=== PATIENT | male | born 1945 | race Caucasian/White ===

== ENCOUNTER 2019-11-11 09:30 | Outpatient (CLI) | payer MEDICARE, OTHER ==
[2019-11-11] MEDS ORDERED: Iopamidol-370 76% 500 ML 1 ML ONE (11:43)
--- NOTE | 2019-11-11 13:52 | CT ---
CT OF CHEST AND ABDOMEN AND PELVIS: DATE: 11/11/2019. COMPARISON: None. HISTORY: Unintentional weight loss. TECHNIQUE: Axial CT imaging at 5 mm intervals from the thoracic inlet through the pubic symphysis with IV and or al contrast. Coronal and sagittal reformatted imaging obtained. FINDINGS: No axillary, hilar, or mediastinal lymphadenopathy. There is left-sided coronary arterial calcificat ion. No pneumothorax, pleural fluid, or pericardial effusion. There is a tiny 3 mm pleural-based nodule within the anterior inferior right lower lobe region on axi al image 32. No dominant pulmonary parenchymal mass lesion or nodule is seen on either side. There is no endobronchial lesion seen on either side. Review of the osseous structures of the chest demonstrate no worrisome lytic or blastic bone lesions. No free intraperitoneal air or fluid is evident. There is a tiny hypodensity in the right lobe of the liver on axial image 65 measuring 6 mm, too smal l to characterize. The spleen, gallbladder, pancreas, and adrenal glands appear grossly unremarkable. Multiple parapelvic cysts are noted within the left kidney. A few right-sided parapelvic cysts are n oted as well. There is an exophytic mid pole right renal cyst measuring 2.8 cm. 3-4 scattered subcentimeter nonobs tructing renal calculi are present on the left measuring up to approximately 5 mm. There are postoperative clips in the pelvis suggesting prior prostatectomy. No evidence for bowel in flammatory change or bowel obstruction is seen. There is extensive scattered atherosclerotic calcification of the abdominal aorta and its branches, m ost prominent within the infrarenal region. No lymphadenopathy is appreciated within the pelvis, the retroperitoneum, or the mesentery. Nonspecific small caliber varices are noted within the upper abdomen including the perihepatic region , the gastrohepatic ligament, and the left upper quadrant adjacent to the greater curvature of the st omach. Review of the osseous structures of the abdomen/pelvis demonstrate multilevel lower lumbar spine face t hypertrophic change. No worrisome lytic or blastic bone lesion is noted. There is multilevel disk space narrowing with anterior osteophyte formation within the lower thoracic spine/thoracolumbar shane ction. The lungs appear hyperinflated suggesting air trapping. Question a history of COPD. IMPRESSION: No acute findings are noted within the chest, abdomen, or pelvis. There are numerous incidental find ings as detailed above. POS: [id number]
== END 2019-11-11 09:31 | disposition home or self-care (01) ==
LOC: BICCT 09:30
PROVIDERS: ATTEND Internal Medicine Gastroenterology
DX: R63.4 Abnormal weight loss (principal); K76.89 Other specified diseases of liver; N28.1 Cyst of kidney, acquired; N20.0 Calculus of kidney; Z98.890 Other specified postprocedural states; I70.0 Atherosclerosis of aorta; I83.90 Asymptomatic varicose veins of unspecified lower extremity; I25.10 Atherosclerotic heart disease of native coronary artery without angina pectoris; R91.1 Solitary pulmonary nodule; M89.9 Disorder of bone, unspecified
CPT/HCPCS: 71260; 74177; Q9967

== ENCOUNTER 2021-06-24 15:25 | Outpatient (CLI) | payer MEDICARE, OTHER | END 2021-06-24 15:26 | disposition home or self-care (01) | LOC: RAD 15:25 | PROVIDERS: ATTEND Family Medicine | DX: R05.9 Cough, unspecified (principal) | CPT/HCPCS: 71046 ==

== ENCOUNTER 2023-11-05 10:56 | Outpatient (CLI) | payer MEDICARE | END 2023-11-05 10:57 | disposition home or self-care (01) | LOC: SCSMRI 10:56 | PROVIDERS: ATTEND Family Medicine | DX: M47.26 Other spondylosis with radiculopathy, lumbar region (principal); M48.061 Spinal stenosis, lumbar region without neurogenic claudication | CPT/HCPCS: 72100; 72148 ==